=== PATIENT | female | born 1985 | race Caucasian/White ===

== ENCOUNTER 2019-07-14 14:46 | Observation (INO) | payer BC ==
--- NOTE | 2019-07-14 16:25 | XRAY ---
Indication: Status post fall. Two-dimensional OB ultrasound performed. Comparison: July 11, 2019. Again there is a single viable intrauterine in cephalic presentation with heart rate 165 BPM. anatomy previously documented. Renal pelvis are bilaterally prominent, one measuring 7.1 mm and the other 9.4 mm. Visualized stomach and bladder are unremarkable. Anterior placenta without abruption/previa. Cervical length is 3.2 cm. BPD measures 8.28 cm corresponding to 33 weeks 2 days. HC measures 29.19 cm corresponding to 32 weeks 1 day. AC measures 28.41 cm corresponding to 32 weeks 3 days. FL measures 6.02 cm corresponding to 31 weeks 2 days. JUAN FRANCISCO is 11.1 cm. Impression: Again single viable intrauterine with mean gestational age 32 weeks 2 days. Normal progression of . Fetus demonstrates bilateral renal pelvic prominence not previously documented. No acute findings.
[2019-07-14 19:42] VITALS: BP 129/75; PULSE 85
== END 2019-07-14 19:40 | disposition home or self-care (01) ==
LOC: OB 14:46
PROVIDERS: ADMIT Family Medicine; ATTEND Family Medicine
DX: Z34.03 Encounter for supervision of normal first pregnancy, third trimester (principal)
CPT/HCPCS: 76805; G0378

== ENCOUNTER 2019-09-14 02:47 | Inpatient (IN) | payer BC ==
[2019-09-14] MEDS ORDERED: Lactated Ringers 1,000 ML IV ONE (03:15)
[2019-09-14] MEDS ORDERED: PITOCIN 30 UNITS/ LR 500 ML 500 ML IV ONE (03:16)
[2019-09-14] MEDS ORDERED: XYLOCAINE 1% HCL 20 ML MDV IJ PRN (03:44)
[2019-09-14] MEDS ORDERED: Zofran 4 MG/2 ML VIAL IV PRN (03:44)
[2019-09-14] MEDS ORDERED: TYLENOL EXTRA STRENGTH 500 MG PO PRN (03:44)
[2019-09-14] MEDS ORDERED: Lactated Ringers 1,000 ML IV SCH (04:00)
[2019-09-14] MEDS ORDERED: PITOCIN 30 UNITS/ LR 500 ML 500 ML IV SCH (04:00)
[2019-09-14 04:06] LABS: Hematocrit 36.6 % (35-47); Hemoglobin 12.3 gm/dl (12.0-16.0); Mean Cell Volume 89.3 fl (78-100); Mean Corpuscular Hgb Concent. 33.6 g/dl (32-36); Mean Platelet Volume 13.3 fl (7.5-11.0); Platelet Count 212 K/mm3 (150-450); Red Cell Distribution Width 14.9 % (11.5-14.0); White Blood Count 15.4 K/mm3 (4.0-10.5)
[2019-09-14 05:00] LABS: BAND 6 % (0.0-2.0); Lymphocytes 13 % (24-44); Monocyte 2 % (0.0-12.0); Neutrophils 79 % (36.0-66.0); Platelet Estimate NORMAL (NORMAL); Total Cells Counted 100
[2019-09-14] MEDS ORDERED: Anucort-HC SUPPOSITORY PR PRN (09:32)
[2019-09-14] MEDS ORDERED: Dermoplast Spray TP PRN (09:32)
[2019-09-14] MEDS ORDERED: CORTISONE 1% CREAM TP PRN (09:32)
[2019-09-14] MEDS ORDERED: LANSINOH 40 GM TOP PRN (09:32)
[2019-09-14] MEDS ORDERED: Dulcolax 10 MG SUPP PR PRN (09:32)
[2019-09-14] MEDS ORDERED: TUCKS TP PRN (09:32)
[2019-09-14] MEDS ORDERED: Mylicon 80MG PO PRN (09:32)
[2019-09-14] MEDS: Colace 100 MG PO SCH ×2 (10:44→21:05)
[2019-09-14] MEDS: FERREX 150 PO SCH (10:44)
[2019-09-14] MEDS: MOTRIN 400 MG PO PRN (21:14)
[2019-09-14 23:37] LABS: Amphetamine,Urine NEGATIVE (NEGATIVE); Barbiturate,Urine NEGATIVE (NEGATIVE); Benzodiazepine,Urine NEGATIVE (NEGATIVE); Cocaine,Urine NEGATIVE (NEGATIVE); Methadone,Urine NEGATIVE (NEGATIVE); Opiate,Urine NEGATIVE (NEGATIVE); PCP,Urine NEGATIVE (NEGATIVE); THC,Urine NEGATIVE (NEGATIVE)
[2019-09-15] MEDS: MOTRIN 400 MG PO PRN ×2 (04:57→19:20)
[2019-09-15 05:32] LABS: Hematocrit 28.5 % (35-47); Mean Cell Volume 90.5 fl (78-100); Mean Corpuscular Hemoglobin 29.5 pg (26-32); Mean Corpuscular Hgb Concent. 32.6 g/dl (32-36); Mean Platelet Volume 12.4 fl (7.5-11.0); Platelet Count 178 K/mm3 (150-450); Red Blood Count 3.15 M/mm3 (4.1-5.4); Red Cell Distribution Width 15.1 % (11.5-14.0); White Blood Count 17.9 K/mm3 (4.0-10.5)
[2019-09-15 05:36] LABS: Hemoglobin 9.3 gm/dl (12.0-16.0)
[2019-09-15 07:01] LABS: ANISOCYTOSIS 1+; Eosinophil 2 % (0.00-3.0); Lymphocytes 10 % (24-44); Monocyte 2 % (0.0-12.0); Neutrophils 86 % (36.0-66.0); Polychromasia 1+; Total Cells Counted 100; Toxic Granulation 1+
[2019-09-15 07:02] LABS: Platelet Estimate NORMAL (NORMAL)
[2019-09-15] MEDS: Colace 100 MG PO SCH ×2 (09:59→22:20)
[2019-09-15] MEDS: FERREX 150 PO SCH (09:59)
[2019-09-15 11:58] LABS: Immune Status: Immune
[2019-09-15 14:34] LABS: RPR Screen Non Reactive (Non Reactive)
[2019-09-16 04:41] VITALS: O2SAT 99
[2019-09-16] MEDS: MOTRIN 400 MG PO PRN ×2 (05:30→11:45)
[2019-09-16] MEDS: FERREX 150 PO SCH (10:00)
[2019-09-16] MEDS: Colace 100 MG PO SCH ×2 (10:00→22:00)
[2019-09-16 22:57] VITALS: BP 151/71; PULSE 70
== END 2019-09-16 22:40 | disposition home or self-care (01) | DRG 807 ==
LOC: OBSVTOIN 02:56 → OB 02:56
PROVIDERS: ADMIT Family Medicine; ATTEND Family Medicine
PROC: 0KQM0ZZ Repair Perineum Muscle, Open Approach (ICD-10-PCS; principal; 2019-09-14)
PROC: 10E0XZZ Delivery of Products of Conception, External Approach (ICD-10-PCS; 2019-09-14)
DX: O24.425 Gestational diabetes mellitus in childbirth, controlled by oral hypoglycemic drugs (principal); Z37.0 Single live birth; O70.1 Second degree perineal laceration during delivery; Z3A.39 39 weeks gestation of pregnancy
CPT/HCPCS: 36415; 80307; 82962; 84112; 85025; 86592; 86593; 86701; 86702; 86762; 87340; 87389; 94799; G0378; J2590; 0064U; A9270-GY